=== PATIENT | female | born 1930 | race Caucasian/White ===

== ENCOUNTER 2017-01-01 15:59 | Emergency (ER) | payer MEDICARE ==
[~2017-01-01] VITALS: Ht 167.6 cm; Wt 87.0 kg
[2017-01-01] MEDS ORDERED: FURO40TA6 PO (16:30)
[2017-01-01 17:03] LABS: HEMATOCRIT 34.3 % (34.6-47.8); HEMOGLOBIN 10.6 g/dL (11.7-16.4); WHITE BLOOD COUNT 6.6 x10^3/uL (3.4-10)
[2017-01-01 17:11] LABS: BLOOD UREA NITROGEN 18 mg/dL (7-18)
[2017-01-01 17:18] LABS: PATH.CAST-FLAG NOT PRESENT; SPERM-FLAG NOT PRESENT; SRC-FLAG NOT PRESENT; XTAL-FLAG NOT PRESENT; YLC-FLAG NOT PRESENT
[2017-01-01 18:31] VITALS: BP 150/64
[2017-01-01] MEDS ORDERED: MAGNESIUM CITRATE 300ML ORAL SOL PO ONE (19:30)
[2017-01-01] MEDS ORDERED: MAGNESIUM CITRATE 300ML ORAL SOL ONE (19:34)
== END 2017-01-01 19:52 | disposition home or self-care (01) ==
LOC: ED 16:31
DX: N30.00 Acute cystitis without hematuria (principal); R33.9 Retention of urine, unspecified; K59.00 Constipation, unspecified; F17.200 Nicotine dependence, unspecified, uncomplicated
CPT/HCPCS: 36415; 51702; 74020; 80048; 81001; 82040; 85025; 87077; 87086; 87186; 93005; 99285

== ENCOUNTER → 2017-02-02 | Outpatient (CLI) | payer MEDICARE ==
[~2017-02-02] MED LIST: FURO40TA6 PO
== END | disposition home or self-care (01) ==
LOC: RAD 14:12
PROVIDERS: ATTEND Emergency Medicine
DX: M79.89 Other specified soft tissue disorders (principal)